=== PATIENT | female | born 1970 | race Caucasian/White ===

== ENCOUNTER 2016-04-03 08:11 | Day surgery (SDC) | payer OTHER ==
[~2016-04-03] VITALS: Ht 167.6 cm; Wt 70.3 kg
[2016-04-03] MEDS ORDERED: POTASSIUM CHLORIDE 40 MEQ in NS 250 ML IV ONE (08:15)
[2016-04-03 10:51] VITALS: O2SAT 98
[2016-04-03] MEDS ORDERED: fentaNYL CITRATE/PF 100 MCG/2 ML AMP IVP ONE (11:10)
[2016-04-03] MEDS ORDERED: KETOROLAC TROMETHAMINE 30 MG VIAL IVP ONE (11:10)
[2016-04-03] MEDS ORDERED: SEVOFLURANE 15 MIN GAS INH ONE (11:10)
[2016-04-03] MEDS ORDERED: DEXAMETHASONE SOD PHOSPHATE 4 MG/ML VIAL IVP ONE (11:10)
[2016-04-03] MEDS ORDERED: MIDAZOLAM HCL 5 MG/5 ML VIAL IVP ONE (11:10)
[2016-04-03] MEDS ORDERED: NS IRRIG SOLN 1000 ML IR ONE (11:10)
[2016-04-03] MEDS ORDERED: PROPOFOL 200MG/ 20ML VIAL (DIPRIVAN) IV ONE (11:10)
[2016-04-03] MEDS ORDERED: LR 1,000 ML IV.SOLN IV ONE (11:10)
[2016-04-03] MEDS ORDERED: ROCURONIUM BROMIDE 10 MG/ML (ZEMURON) IV ONE (11:10)
[2016-04-03] MEDS ORDERED: LR 1,000 ML IV SCH (11:59)
[2016-04-03] MEDS ORDERED: HYDROmorphone 1 MG INJ. 1 MG/ML AMPUL IVP PRN (12:00)
[2016-04-03] MEDS ORDERED: HYDROmorphone 2 MG/ML VIAL IVP PRN ×2 (12:00)
[2016-04-03] MEDS ORDERED: IBUPROFEN 800 MG TABLET PO PRN (12:15)
[2016-04-03] MEDS ORDERED: ONDANSETRON HCL 4 MG/2 ML VIAL IVP PRN (12:15)
[2016-04-03] MEDS ORDERED: HYDROmorphone 1 MG INJ. 1 MG/ML AMPUL ONE (12:49)
[2016-04-03 13:18] VITALS: PULSE 96; RESP 16
[2016-04-03] MEDS ORDERED: traMADol HCL HCL 50 MG TABLET (ULTRAM) PO ONE (13:30)
[2016-04-03] MEDS ORDERED: traMADol HCL HCL 50 MG TABLET (ULTRAM) PO SCH (13:45)
[2016-04-03] MEDS ORDERED: ONDANSETRON HCL 4 MG/2 ML VIAL ONE (14:12)
[2016-04-03] MEDS ORDERED: traMADol HCL HCL 50 MG TABLET (ULTRAM) ONE (15:53)
[2016-04-03 16:16] VITALS: BP 131/86
== END 2016-04-03 16:00 | disposition home or self-care (01) ==
LOC: SDS 08:11
PROVIDERS: ATTEND Obstetrics & Gynecology
DX: N92.0 Excessive and frequent menstruation with regular cycle (principal); I10 Essential (primary) hypertension; G44.009 Cluster headache syndrome, unspecified, not intractable; F32.9 Major depressive disorder, single episode, unspecified; E03.9 Hypothyroidism, unspecified; K50.90 Crohn's disease, unspecified, without complications; Z90.49 Acquired absence of other specified parts of digestive tract
CPT/HCPCS: 36415 ×2; 58558; 84132; 86886; 86900; 86901; 88305; J1100; J1170; J1885; J2250; J2405; J2704; J3010; J3480; J7050; J7120

== ENCOUNTER 2018-01-21 13:16 | Inpatient (IN) | payer OTHER ==
[~2018-01-21] VITALS: Ht 167.6 cm; Wt 67.1 kg
[2018-01-21 13:20] VITALS: BP_SYST 159
[2018-01-21] MEDS ORDERED: NACL 0.9% 1,000 ML IV ONE ×2 (14:00→21:15)
[2018-01-21] MEDS ORDERED: ONDANSETRON HCL 4 MG/2 ML VIAL IVP ONE (14:00)
[2018-01-21] MEDS ORDERED: KETOROLAC TROMETHAMINE 30 MG VIAL IVP ONE (14:00)
[2018-01-21 14:12] LABS: BASOPHILS % (AUTO) 0.4 % (0.0-2.0); EOSINOPHILS % (AUTO) 0.3 % (0.0-4.0); HEMATOCRIT 42.4 % (36-48); HEMOGLOBIN 14.2 g/dL (12.0-16.0); LYMPHOCYTES # (AUTO) 0.9 K/uL (1.0-5.5); LYMPHOCYTES % (AUTO) 12.7 % (20.5-51.5); MEAN CORPUSCULAR HEMOGLOBIN 33 pg (27-31); MEAN CORPUSCULAR HGB CONC 34 % (32-36); MEAN CORPUSCULAR VOLUME 97 fL (79.0-98.0); MONOCYTES # (AUTO) 0.3 K/uL (0.0-1.0); MONOCYTES % (AUTO) 4.6 % (1.7-9.3); NEUTROPHILS # (AUTO) 6.2 K/uL (1.8-7.7); PLATELET COUNT (AUTO) 195 K/uL (130-430); RED BLOOD CELL COUNT(AUTO) 4.36 MIL/uL (4.2-6.2); RED CELL DISTRIBUTION WIDTH 11.4 % (9.0-15.0); WHITE BLOOD COUNT (AUTO) 7.4 K/uL (4.8-10.8)
[2018-01-21 14:21] LABS: CALCIUM 9.1 mg/dL (8.4-11.0); CREATININE 0.79 mg/dL (0.55-1.30)
[2018-01-21 14:25] LABS: POTASSIUM 2.9 mmol/L (3.5-5.1)
[2018-01-21 14:26] LABS: ALBUMIN 4.5 g/dL (3.4-4.8); TOTAL BILIRUBIN 0.8 mg/dL (0.0-1.0)
[2018-01-21] MEDS ORDERED: POTASSIUM CHLORIDE 40 MEQ in NS 250 ML IV ONE (14:30)
[2018-01-21] MEDS ORDERED: BROM473L42 PO (14:33)
[2018-01-21] MEDS ORDERED: TOP25 PO ×2 (14:33)
[2018-01-21] MEDS ORDERED: TAMO20TA4 PO (14:33)
[2018-01-21] MEDS ORDERED: PRO40 PO (14:33)
[2018-01-21] MEDS ORDERED: MORPHINE 2 MG/ML INJ. SYRINGE IVP PRN (16:00)
[2018-01-21] MEDS ORDERED: MORPHINE 4 MG/ML INJ. SYRINGE IVP PRN (16:00)
[2018-01-21] MEDS ORDERED: KETOROLAC TROMETHAMINE 30 MG VIAL ONE (16:21)
[2018-01-21 16:33] VITALS: BP_SYST 152
[2018-01-21] MEDS: D5NS 1,000 ML IV SCH ×2 (16:48→21:36)
[2018-01-21 17:08] LABS: BILIRUBIN,URINE NEGATIVE (NEGATIVE); BLOOD, URINE NEGATIVE (NEGATIVE); CLARITY/URINE CLEAR (CLEAR); COLOR,URINE YELLOW (YELLOW); GLUCOSE,URINE NEGATIVE (NEGATIVE); KETONES,URINE NEGATIVE (NEGATIVE); LEUKOCYTE ESTERASE ,URINE NEGATIVE (NEGATIVE); NITRITE, URINE NEGATIVE (NEGATIVE); PROTEIN URINE NEGATIVE (NEGATIVE); UROBILINOGEN,URINE 0.2 (0.2-1.0)
[2018-01-21 19:05] VITALS: BP_SYST 125
[2018-01-21] MEDS: KETOROLAC TROMETHAMINE 30 MG VIAL IVP PRN (21:32)
[2018-01-22] MEDS: KETOROLAC TROMETHAMINE 30 MG VIAL IVP PRN ×2 (05:06→11:42)
[2018-01-22] MEDS: D5NS 1,000 ML IV SCH ×3 (05:29→17:34)
[2018-01-22 07:34] LABS: BASOPHILS % (AUTO) 0.4 % (0.0-2.0); HEMATOCRIT 37.6 % (36-48); HEMOGLOBIN 12.9 g/dL (12.0-16.0); LYMPHOCYTES # (AUTO) 0.7 K/uL (1.0-5.5); LYMPHOCYTES % (AUTO) 15.9 % (20.5-51.5); MEAN CORPUSCULAR HEMOGLOBIN 34 pg (27-31); MEAN CORPUSCULAR HGB CONC 34 % (32-36); MEAN CORPUSCULAR VOLUME 99 fL (79.0-98.0); MONOCYTES # (AUTO) 0.3 K/uL (0.0-1.0); NEUTROPHILS # (AUTO) 3.6 K/uL (1.8-7.7); NEUTROPHILS % (AUTO) 76.7 % (40.0-70.0); PLATELET COUNT (AUTO) 164 K/uL (130-430); RED BLOOD CELL COUNT(AUTO) 3.82 MIL/uL (4.2-6.2); RED CELL DISTRIBUTION WIDTH 11.7 % (9.0-15.0); WHITE BLOOD COUNT (AUTO) 4.6 K/uL (4.8-10.8)
[2018-01-22 07:53] LABS: ALBUMIN 3.5 g/dL (3.4-4.8); CALCIUM 8.3 mg/dL (8.4-11.0); CREATININE 0.61 mg/dL (0.55-1.30); POTASSIUM 3.5 mmol/L (3.5-5.1); TOTAL BILIRUBIN 0.6 mg/dL (0.0-1.0)
[2018-01-22 08:00] VITALS: BP_SYST 169
[2018-01-22] MEDS ORDERED: PANTOPRAZOLE SODIUM 40 MG TAB PO ONE (10:15)
[2018-01-22] MEDS ORDERED: TOPIRAMATE 25 MG TABLET(TOPAMAX) PO ONE (10:30)
[2018-01-22] MEDS ORDERED: TAMOXIFEN CITRATE 10 MG TABLET PO ONE (10:30)
[2018-01-22] MEDS: cloNIDine HCL 0.1 MG TABLET PO PRN ×2 (11:41→16:26)
[2018-01-22 12:09] VITALS: BP_SYST 149
[2018-01-22 16:45] VITALS: BP_SYST 137
[2018-01-22 19:55] VITALS: BP_SYST 138
[2018-01-22] MEDS ORDERED: TOPIRAMATE 25 MG TABLET(TOPAMAX) PO SCH (21:00)
[2018-01-22] MEDS ORDERED: VANCOMYCIN HCL 1 GM/NS PREMIX 250 ML IV ONE ×2 (21:45→22:00)
[2018-01-22] MEDS ORDERED: VANCOMYCIN HCL 1000 MG/VIAL IV ONE (22:11)
[2018-01-22 23:54] VITALS: BP_SYST 122
[2018-01-23] MEDS: D5NS 1,000 ML IV SCH ×2 (01:53→08:11)
[2018-01-23] MEDS ORDERED: [UNRECOGNIZED DRUG - OTHER] PO SCH (06:00)
[2018-01-23] MEDS ORDERED: TOPIRAMATE 25 MG TABLET(TOPAMAX) PO SCH (09:00)
[2018-01-23] MEDS ORDERED: TAMOXIFEN CITRATE 10 MG TABLET PO SCH (09:00)
[2018-01-23] MEDS ORDERED: PANTOPRAZOLE SODIUM 40 MG TAB PO SCH (09:00)
[2018-01-23 09:03] LABS: CREATININE 0.68 mg/dL (0.55-1.30); POTASSIUM 3.2 mmol/L (3.5-5.1)
[2018-01-23 09:08] LABS: ALBUMIN 4.1 g/dL (3.4-4.8); TOTAL BILIRUBIN 0.4 mg/dL (0.0-1.0)
[2018-01-23 09:25] VITALS: BP_SYST 145
[2018-01-23] MEDS ORDERED: POTASSIUM CHLORIDE 20 MEQ TAB.PRT.SR PO ONE (09:30)
[2018-01-23 11:36] VITALS: BP_SYST 146
== END 2018-01-23 12:00 | disposition home or self-care (01) | DRG 440 ==
LOC: SED 13:16 → SMU 15:52
PROVIDERS: ADMIT Internal Medicine Hospice and Palliative Medicine; ATTEND Internal Medicine Hospice and Palliative Medicine
DX: K85.90 Acute pancreatitis without necrosis or infection, unspecified (principal); E03.9 Hypothyroidism, unspecified; I10 Essential (primary) hypertension; K21.9 Gastro-esophageal reflux disease without esophagitis; R19.7 Diarrhea, unspecified; Z85.3 Personal history of malignant neoplasm of breast; Z90.13 Acquired absence of bilateral breasts and nipples; Z88.5 Allergy status to narcotic agent; Z88.8 Allergy status to other drugs, medicaments and biological substances; Z79.899 Other long term (current) drug therapy; N20.0 Calculus of kidney; E87.6 Hypokalemia
CPT/HCPCS: 36415; 76700-TC; 80053; 80061; 81003; 81025; 82150-TC; 83690-TC; 85025; 87040-TC; 96361; 96365; 96366; 99285; J1885; J2270; J3370; J3480; J7030; J7042; J7050

== ENCOUNTER 2020-09-21 09:33 | Emergency (ER) | payer OTHER ==
[~2020-09-21] VITALS: Ht 167.6 cm; Wt 68.0 kg
[~2020-09-21 09:33] MED LIST: BROM473L42 PO; PRO40 PO; TAMO20TA4 PO; TOP25 PO
[2020-09-21 09:42] VITALS: BP_SYST 154
--- NOTE | 2020-09-21 09:42 | NUR ---
Patient to ER bed 4 to gown for evaluation. Side rails up.
--- NOTE | 2020-09-21 09:56 | NUR ---
PT ARRIVES W/ C/O 06/12, SHARP, R AND L LOWER QUDRANT ABD PAIN SINCE YESTERDAY. PT DENIES ANY N/V/D. PAIN RADIATES TO THE RIGHT LOWER SIDE
--- NOTE | 2020-09-21 09:58 | NUR ---
# 20 gauge angiocath placed to LAC. Use of asceptic technique. Opsite placed over site. Blood return noted. Blood for lab drawn from site. Flushed with 10 cc of normal saline. No evidence of infiltration noted. Patient tolerated well.
[2020-09-21] MEDS ORDERED: MORPHINE 4 MG INJ. 4 MG/ML VIAL IVP ONE (10:00)
[2020-09-21] MEDS ORDERED: NACL 0.9% 1,000 ML IV ONE (10:00)
--- NOTE | 2020-09-21 10:00 | NUR ---
ER at bedside examining patient.
[2020-09-21] MEDS ORDERED: KETOROLAC TROMETHAMINE 30 MG VIAL IVP ONE (10:15)
[2020-09-21 10:22] LABS: EOSINOPHILS # (AUTO) 0.1 K/uL (0.0-0.4); LYMPHOCYTES # (AUTO) 1.1 K/uL (1.0-5.5); MEAN CORPUSCULAR VOLUME 100 fL (79.0-98.0); MONOCYTES # (AUTO) 0.3 K/uL (0.0-1.0)
[2020-09-21 10:25] LABS: BILIRUBIN,URINE NEGATIVE (NEGATIVE); BLOOD, URINE NEGATIVE (NEGATIVE); CLARITY/URINE CLEAR (CLEAR); COLOR,URINE YELLOW (YELLOW); GLUCOSE,URINE NEGATIVE (NEGATIVE); KETONES,URINE NEGATIVE (NEGATIVE); LEUKOCYTE ESTERASE ,URINE NEGATIVE (NEGATIVE); NITRITE, URINE NEGATIVE (NEGATIVE); PH,URINE 7.5 (5.0-8.0); PROTEIN URINE NEGATIVE (NEGATIVE); UROBILINOGEN,URINE 0.2 (0.2-1.0)
[2020-09-21 10:32] LABS: BASOPHILS % (AUTO) 0.6 % (0.0-2.0); EOSINOPHILS % (AUTO) 1.7 % (0.0-4.0); HEMATOCRIT 39.6 % (36-48); HEMOGLOBIN 13.8 g/dL (12.0-16.0); LYMPHOCYTES % (AUTO) 22.6 % (20.5-51.5); MEAN CORPUSCULAR HEMOGLOBIN 35 pg (27-31); MEAN CORPUSCULAR HGB CONC 35 % (32-36); NEUTROPHILS % (AUTO) 68.1 % (40.0-70.0); PLATELET COUNT (AUTO) 216 K/uL (130-430); RED BLOOD CELL COUNT(AUTO) 3.94 MIL/uL (4.2-6.2); RED CELL DISTRIBUTION WIDTH 12.3 % (9.0-15.0)
[2020-09-21 10:33] LABS: NEUTROPHILS # (AUTO) 3.4 K/uL (1.8-7.7)
[2020-09-21 10:34] LABS: CREATININE 0.71 mg/dL (0.55-1.30); POTASSIUM 4.2 mmol/L (3.5-5.1)
[2020-09-21 10:40] LABS: ALBUMIN 4.3 g/dL (3.4-4.8); TOTAL BILIRUBIN 0.8 mg/dL (0.0-1.0)
--- NOTE | 2020-09-21 11:00 | NUR ---
Patient transported to radiology via WC, accompanied by US tech.
--- NOTE | 2020-09-21 12:49 | NUR ---
Surjit mchugh in [facility] - 09/21/[address] at [address] FERRIS AT THE BEDSIDE
[2020-09-21] MEDS ORDERED: MAG HYDROX/AL HYDROX/SIMETH 30 ML, DICYCLOMINE HCL 20 MG, LIDOCAINE VISCOUS 2% 15ML (PO... PO ONE ×3 (13:00)
[2020-09-21] MEDS ORDERED: FAMOTIDINE 20 MG TABLET PO ONE (13:00)
[2020-09-21] MEDS ORDERED: FAMO20TA8 PO (13:05)
[2020-09-21 13:24] VITALS: BP_SYST 154
--- NOTE | 2020-09-21 13:27 | NUR ---
pt wants to speak w/ Dr. Talley prior to dc
--- NOTE | 2020-09-21 14:10 | NUR ---
Patient given written and verbal discharge instructions and verbalizes understanding. ER MD discussed with patient the results and treatment provided. Patient in stable condition. ID arm band removed. IV catheter removed intact and dressing applied, no active bleeding. Rx of pepcid given. Patient educated on pain management and to follow up with PMD. Pain Scale 3/10. Opportunity for questions provided and answered. Medication side effect fact sheet provided.
== END 2020-09-21 14:10 | disposition home or self-care (01) ==
LOC: SED 09:33
DX: R10.10 Upper abdominal pain, unspecified (principal); K21.9 Gastro-esophageal reflux disease without esophagitis; I10 Essential (primary) hypertension; Z88.5 Allergy status to narcotic agent; Z88.8 Allergy status to other drugs, medicaments and biological substances; Z79.899 Other long term (current) drug therapy
CPT/HCPCS: 36415; 76700; 80053; 81003; 81025; 83605; 83690; 84484; 85025; 87040; 96361; 96374; 99284; J1885; J2001; J2270; J7030